=== PATIENT | female | born 1945 | race Caucasian/White ===

== ENCOUNTER 2021-07-01 11:13 | Emergency (ER) | payer MEDICARE ==
[~2021-07-01] VITALS: Ht 157.5 cm; Wt 58.2 kg
[~2021-07-01 11:13] MED LIST: NITR0.4T48 SL
[2021-07-01 13:04] LABS: BASOPHILS % (AUTO) 0.2 % (0-1); EOSINOPHILS % (AUTO) 0.1 % (0-6); HEMATOCRIT 44.7 % (35.0-45.0); HEMOGLOBIN 14.8 g/dl (12.0-16.0); LYMPHOCYTES # (AUTO) 1.2 X10'3 (1.1-4.8); LYMPHOCYTES % (AUTO) 26.3 % (21-51); MEAN CORPUSCULAR HEMOGLOBIN 31.4 PG (27.0-31.0); MEAN PLATELET VOLUME 8.5 FL (7.4-10.4); MONOCYTES # (AUTO) 0.4 X10'3 (0-0.9); MONOCYTES % (AUTO) 8.6 % (2-12); NEUTROPHILS # (AUTO) 2.9 X10'3 (1.8-7.7); NEUTROPHILS % (AUTO) 64.8 % (42-75); PLATELET COUNT 244 X10'3 (140-440); RED CELL DISTRIBUTION WIDTH 13.5 % (11.5-14.5); WHITE BLOOD COUNT 4.4 X10'3 (4.5-11.0)
[2021-07-01 13:15] LABS: ALANINE AMINOTRANSFERASE 51 U/L (12-78); ALBUMIN 3.3 G/DL (3.4-5.0); ALBUMIN/GLOBULIN RATIO 0.8 (1.1-1.5); ALKALINE PHOSPHATASE 124 IU/L (46-116); ANION GAP 13 (8-16); ASPARTATE AMINO TRANSFERASE 57 U/L (10-37); BILIRUBIN,TOTAL 0.3 MG/DL (0.1-1.0); BLOOD UREA NITROGEN 12 MG/DL (7-18); BUN/CREATININE RATIO 15.4 (6.6-38.0); CHLORIDE 103 MMOL/L (99-107); CREATININE 0.78 MG/DL (0.40-0.90); GLUCOSE 88 MG/DL (70-104); POTASSIUM 4.6 MMOL/L (3.5-5.1); SODIUM 140 MMOL/L (135-145); TOTAL CARBON DIOXIDE 24.3 MMOL/L (24-32); TOTAL PROTEIN 7.2 G/DL (6.4-8.2); eGFR 72 ML/MIN
[2021-07-01] MEDS ORDERED: CASIRIVIMAB/IMDEVIMAB inject. 10 ML in normal saline 100ml IV soln 100 ML IV ONE (14:00)
[2021-07-01 14:15] LABS: TROPONIN I < 0.04 NG/ML (0.0-0.05)
[2021-07-01 14:22] LABS: D-DIMER 0.79 MG/L FEU (0-0.50)
[2021-07-01 15:03] VITALS: BP 143/66
[2021-07-01] MEDS ORDERED: iohexol 350MG/ML 100ml bottle IV ONE (15:15)
[2021-07-01] MEDS ORDERED: DEXA6TAB6 PO (16:10)
[2021-07-01] MEDS ORDERED: ALBU8HFA PO (16:10)
== END 2021-07-01 16:30 | disposition home or self-care (01) ==
LOC: ER 11:13
DX: U07.1 COVID-19 (principal); J12.82 Pneumonia due to coronavirus disease 2019; R91.1 Solitary pulmonary nodule; E78.00 Pure hypercholesterolemia, unspecified; Z79.899 Other long term (current) drug therapy
CPT/HCPCS: 36415; 71045; 71275; 80053; 83880; 84484; 85025; 85379; 93005; 99285; M0243; Q0244; Q9967

== ENCOUNTER 2021-07-06 07:19 | Inpatient (IN) | payer MEDICARE ==
[~2021-07-06] VITALS: Ht 157.5 cm; Wt 56.0 kg
[~2021-07-06 07:19] MED LIST changes: +ALBU8HFA PO; +DEXA6TAB6 PO
[2021-07-06 08:52] LABS: BASOPHILS # (AUTO) 0.1 X10'3 (0-0.2); BASOPHILS % (AUTO) 0.4 % (0-1); EOSINOPHILS % (AUTO) 0 % (0-6); HEMOGLOBIN 14.6 g/dl (12.0-16.0); LYMPHOCYTES # (AUTO) 1.4 X10'3 (1.1-4.8); LYMPHOCYTES % (AUTO) 10.7 % (21-51); MEAN CORPUSCULAR HEMOGLOBIN 31.6 PG (27.0-31.0); MEAN CORPUSCULAR HGB CONC 33.3 g/dL (33.0-36.5); MEAN CORPUSCULAR VOLUME 94.8 FL (78-98); MONOCYTES # (AUTO) 0.6 X10'3 (0-0.9); MONOCYTES % (AUTO) 4.6 % (2-12); NEUTROPHILS # (AUTO) 11.1 X10'3 (1.8-7.7); NEUTROPHILS % (AUTO) 84.3 % (42-75); PLATELET COUNT 472 X10'3 (140-440); RED BLOOD COUNT 4.64 X10'6 (4.20-5.60); RED CELL DISTRIBUTION WIDTH 13.5 % (11.5-14.5); WHITE BLOOD COUNT 13.2 X10'3 (4.5-11.0)
[2021-07-06 09:07] LABS: ALANINE AMINOTRANSFERASE 89 U/L (12-78); ALBUMIN/GLOBULIN RATIO 0.8 (1.1-1.5); ALKALINE PHOSPHATASE 131 IU/L (46-116); ANION GAP 13 (8-16); ASPARTATE AMINO TRANSFERASE 45 U/L (10-37); BILIRUBIN,TOTAL 0.5 MG/DL (0.1-1.0); BLOOD UREA NITROGEN 22 MG/DL (7-18); BUN/CREATININE RATIO 26.5 (6.6-38.0); CALCIUM 8.6 MG/DL (8.5-10.1); CHLORIDE 105 MMOL/L (99-107); CREATININE 0.83 MG/DL (0.40-0.90); GLUCOSE 130 MG/DL (70-104); POTASSIUM 3.8 MMOL/L (3.5-5.1); SODIUM 141 MMOL/L (135-145); eGFR 67 ML/MIN
[2021-07-06 09:25] LABS: C-REACTIVE PROTEIN 0.51 MG/DL (0.0-0.5); FERRITIN 587 NG/ML (8-252); TROPONIN I < 0.04 NG/ML (0.0-0.05)
[2021-07-06 09:31] LABS: D-DIMER 1.05 MG/L FEU (0-0.50)
[2021-07-06 09:45] LABS: LACTATE DEHYDROGENASE 255 U/L (81-234)
[2021-07-06] MEDS ORDERED: dexamethasone sod phosphate 10mg/ml inj IV STA (09:54)
[2021-07-06] MEDS ORDERED: acetaminophen 325mg tablet PO ONE (10:05)
[2021-07-06] MEDS ORDERED: iohexol 350MG/ML 100ml bottle IV ONE (10:24)
[2021-07-06] MEDS ORDERED: potassium Cl 20 mEq SR tablet PO PRN ×2 (10:50)
[2021-07-06] MEDS ORDERED: normal saline 1000ml 1,000 ML IV SCH (10:50)
[2021-07-06] MEDS ORDERED: magnesium hydroxide 30ml (MOM) UD suspension PO PRN (10:50)
[2021-07-06] MEDS ORDERED: ondansetron/PF 4mg/2ml inj IV PRN (10:50)
[2021-07-06] MEDS ORDERED: acetaminophen 325mg tablet PO PRN ×2 (10:50)
[2021-07-06] MEDS ORDERED: potassium Cl 40MEQ/1/2NS 520ml 520 ML IV PRN ×2 (10:50)
[2021-07-06] MEDS ORDERED: albuterol 2.5 MG/3 ML nebule NEB SCH (14:00)
[2021-07-06 14:18] LABS: ABG BASE EXCESS -0.9 mmol/L (-2.0-2.0); ABG HCO3 21.8 mmol/L (22.0-26.0); ABG PCO2 (T) 31.1 mmHg (32.0-45.0); ALLEN'S TEST POSITIVE; FCOHb 0.4 % (0.0-3.9); FLOW 2 L/min; FO2Hb 88.6 % (94-97); TOTAL HEMOGLOBIN 14.5 G/dl (12.0-16.0)
[2021-07-06] MEDS ORDERED: HYDROcodone/acetaminophen 5mg/325mg tablet PO ONE (15:10)
[2021-07-06] MEDS: K and/or MAG REPLACEMENT MC SCH (20:00)
[2021-07-06] MEDS: heparin, porcine 5000 units/ml vial SQ SCH (20:17)
[2021-07-06] MEDS: dexamethasone 4mg/ml inj IV SCH (20:17)
[2021-07-06] MEDS ORDERED: NO HOME MEDS (23:26)
--- NOTE | 2021-07-07 06:45 | NUR ---
ATTEMPTED TO CALL REPORT TO COVID UNIT. NURSE UNABLE TO TAKE REPORT AND ROOM IS NOT CLEAN AT THIS TIME. WILL TRY BACK SOON.
[2021-07-07] MEDS: dexamethasone 4mg/ml inj IV SCH (07:10)
[2021-07-07] MEDS: heparin, porcine 5000 units/ml vial SQ SCH (07:11)
--- NOTE | 2021-07-07 07:22 | NUR ---
MORNING MEDS ADMINISTERED. PATIENT INDEPENDENT AND UP TO BSC. ATTEMPTING TO CALL REPORT TO COVID UNIT. NURSE DID NOT COME TO PHONE AND KEPT THIS NURSE ON HOLD. COVID UNIT INFORMED TO HAVE NURSE CALL THE ER FOR REPORT
[2021-07-07] MEDS: K and/or MAG REPLACEMENT MC SCH (08:00)
[2021-07-07 09:05] LABS: BASOPHILS % (AUTO) 0.4 % (0-1); EOSINOPHILS % (AUTO) 0 % (0-6); LYMPHOCYTES # (AUTO) 0.9 X10'3 (1.1-4.8); LYMPHOCYTES % (AUTO) 7.3 % (21-51); MEAN CORPUSCULAR HEMOGLOBIN 31.9 PG (27.0-31.0); MEAN CORPUSCULAR HGB CONC 33.4 g/dL (33.0-36.5); MEAN CORPUSCULAR VOLUME 95.7 FL (78-98); MEAN PLATELET VOLUME 8.4 FL (7.4-10.4); MONOCYTES # (AUTO) 0.6 X10'3 (0-0.9); NEUTROPHILS # (AUTO) 11.2 X10'3 (1.8-7.7); NEUTROPHILS % (AUTO) 87.3 % (42-75); PLATELET COUNT 489 X10'3 (140-440); RED BLOOD COUNT 4.38 X10'6 (4.20-5.60); RED CELL DISTRIBUTION WIDTH 13.5 % (11.5-14.5); WHITE BLOOD COUNT 12.9 X10'3 (4.5-11.0)
[2021-07-07 09:17] LABS: ALANINE AMINOTRANSFERASE 71 U/L (12-78); ALBUMIN 2.8 G/DL (3.4-5.0); ALBUMIN/GLOBULIN RATIO 0.7 (1.1-1.5); ALKALINE PHOSPHATASE 154 IU/L (46-116); ANION GAP 13 (8-16); ASPARTATE AMINO TRANSFERASE 27 U/L (10-37); BILIRUBIN,TOTAL 0.6 MG/DL (0.1-1.0); BLOOD UREA NITROGEN 18 MG/DL (7-18); CALCIUM 8.2 MG/DL (8.5-10.1); CHLORIDE 104 MMOL/L (99-107); CREATININE 0.75 MG/DL (0.40-0.90); GLUCOSE 115 MG/DL (70-104); POTASSIUM 4.6 MMOL/L (3.5-5.1); SODIUM 140 MMOL/L (135-145); TOTAL CARBON DIOXIDE 23.4 MMOL/L (24-32); eGFR 76 ML/MIN
--- NOTE | 2021-07-07 11:02 | NUR ---
patient settled in room O2 91% on 3L. VSS. will continue to monitor.
--- NOTE | 2021-07-07 11:02 | NUR ---
Patient in room COVID 05. I have received report from Aislinn VILLA and had the opportunity to ask questions and assume patient care.
[2021-07-07 11:03] VITALS: BP 123/69
--- NOTE | 2021-07-07 13:16 | NUR ---
O2 Sat at rest on room air:_87__% If below 89%: Recovery O2 Sat at rest on _2__LPM:___91%:___% via NC (mask/nasal cannula, etc..) No further documentation is necessary. If O2 Sat did not drop below 89% on room air,ambulate patient on room air. O2 Sat while ambulating on room air:___% Recovery O2 Sat while ambulating on ___LPM:___% No further documentation is necessary. If patient does not drop below 89% while ambulating, he/she does not qualify for home O2.
[2021-07-07 13:19] LABS: ABG BASE EXCESS -0.5 mmol/L (-2.0-2.0); ABG OXYGEN SATURATION 90.5 % (94-97); ABG PO2 (T) 56.5 mmHg (75.0-100.0); ALLEN'S TEST POSITIVE; FCOHb 0.2 % (0.0-3.9); FLOW 2 L/min; FMetHb 0.2 % (0.0-1.5); FO2Hb 90.1 % (94-97); PATIENT TEMPERATURE 37.2; TOTAL HEMOGLOBIN 15.2 G/dl (12.0-16.0)
[2021-07-07] MEDS ORDERED: NICO-687 TOP (13:52)
[2021-07-07] MEDS ORDERED: PRED10TA23 PO (13:53)
[2021-07-07] MEDS ORDERED: LEVO500T89 PO (13:54)
--- NOTE | 2021-07-07 16:26 | NUR ---
patient continues on 02/3l o2 sats 88-94%. ABG done, seen by DR brandon muhammad to DC based on ABG and recommendation of Dc with O2 @3L . patient given all DC instructions . Discharged home in stable condition with family 1530. in private car.
== END 2021-07-07 15:30 | disposition home or self-care (01) | DRG 177 ==
LOC: ER 07:19 → ED HOLD 10:54 → EDBEDREQ 07-07 05:14 → COVID IP 07-07 10:28
PROVIDERS: ADMIT Internal Medicine; ATTEND Internal Medicine
PROC: B32T1ZZ Computerized Tomography (CT Scan) of Left Pulmonary Artery using Low Osmolar Contrast (ICD-10-PCS; principal; 2021-07-06)
PROC: B3201ZZ Computerized Tomography (CT Scan) of Thoracic Aorta using Low Osmolar Contrast (ICD-10-PCS; 2021-07-06)
PROC: B32S1ZZ Computerized Tomography (CT Scan) of Right Pulmonary Artery using Low Osmolar Contrast (ICD-10-PCS; 2021-07-06)
DX: U07.1 COVID-19 (principal); J96.01 Acute respiratory failure with hypoxia; E78.00 Pure hypercholesterolemia, unspecified; F17.200 Nicotine dependence, unspecified, uncomplicated; T38.0X5A Adverse effect of glucocorticoids and synthetic analogues, initial encounter; Z66 Do not resuscitate; R74.8 Abnormal levels of other serum enzymes; Y92.89 Other specified places as the place of occurrence of the external cause; Z71.6 Tobacco abuse counseling
CPT/HCPCS: 36415; 36600; 71045; 71275; 80053; 82728; 82803; 83605; 83615; 83880; 84145; 84484; 85018; 85025; 85379; 85384; 86140; 87040; 93005; 94760; 99285; G0378; J1100; J1644; Q9967

== ENCOUNTER 2024-02-23 10:32 | Emergency (ER) | payer MEDICARE ==
[~2024-02-23] VITALS: Ht 157.5 cm; Wt 68.2 kg
[~2024-02-23 10:32] MED LIST changes: -ALBU8HFA PO; -DEXA6TAB6 PO; -NITR0.4T48 SL; +NO HOME MEDS
[2024-02-23 10:39] VITALS: TEMP 98.5; O2SAT 97
[2024-02-23] MEDS ORDERED: HYDR-3965 PO (11:53)
[2024-02-23] MEDS: HYDROcodone/acetaminophen 5mg/325mg tablet PO ONE (11:56)
[2024-02-23 12:01] VITALS: BP 133/82; PULSE 76; RESP 15
== END 2024-02-23 12:10 | disposition home or self-care (01) ==
LOC: ER 10:33
DX: S60.221A Contusion of right hand, initial encounter (principal); S80.02XA Contusion of left knee, initial encounter; W01.0XXA Fall on same level from slipping, tripping and stumbling without subsequent striking against object, initial encounter; Y93.89 Activity, other specified; Y92.89 Other specified places as the place of occurrence of the external cause; Y99.8 Other external cause status
CPT/HCPCS: 29505; 73130; 73564; 99284